=== PATIENT | female | born 1985 | race Caucasian/White ===

== ENCOUNTER 2022-02-07 06:46 | Observation (INO) | payer BC ==
[2022-02-07] MEDS ORDERED: MEFOXIN 2 GM PREMIX** 2 GM/50 ML ML IV ONE (07:14)
[2022-02-07] MEDS ORDERED: Lactated Ringers 1,000 ML IV ONE ×2 (07:15→11:00)
[2022-02-07 07:30] LABS: Hematocrit 40.5 % (35-47); Hemoglobin 13.9 g/dL (12.0-16.0); Mean Cell Volume 86.4 fL (78-100); Mean Corpuscular Hemoglobin 29.6 pg (26-32); Mean Corpuscular Hgb Concent. 34.3 g/dL (32-36); Mean Platelet Volume 10.3 fL (7.5-11.0); Platelet Count 208 x10^3/uL (150-450); Red Blood Count 4.69 x10^6/uL (4.1-5.4); Red Cell Distribution Width 12.3 % (11.5-14.0); White Blood Count 9.6 x10^3/uL (4.0-10.5)
[2022-02-07] MEDS ORDERED: Lactated Ringers 1,000 ML IV SCH (07:30)
[2022-02-07 07:56] LABS: RH TYPING NEGATIVE
[2022-02-07 07:59] LABS: ALBUMIN 4.3 g/dL (3.5-5.0); ALKALINE PHOSPHATASE 84 U/L (38-126); ANION GAP 10.7 MEQ/L (5-15); BLOOD UREA NITROGEN 7 mg/dL (7-17); CHLORIDE 104 mmol/L (98-107); Calcium 9.2 mg/dL (8.4-10.2); Carbon Dioxide 27 mmol/L (22-30); Creatinine 1 0.61 mg/dL (0.52-1.04); EST GLOMERULAR FILTRATION RATE > 60.0 ML/MIN; Glucose 97 mg/dL (74-106); Potassium 4.2 mmol/L (3.5-5.1); SGOT/AST 71 U/L (14-36); SGPT/ALT 46 U/L (0-35); SODIUM 137 mmol/L (137-145); Total Protein 7.6 g/dL (6.3-8.2)
[2022-02-07] MEDS ORDERED: MEFOXIN 2 GM PREMIX** 2 GM/50 ML ML IV SCH (08:00)
[2022-02-07 08:07] LABS: INFLUENZA A NEGATIVE (NEGATIVE); INFLUENZA B NEGATIVE (NEGATIVE); RESPIRATORY SYNCTIAL VIRUS NEGATIVE (Negative); SARS-CoV-2 Xpert Express NEGATIVE (NEGATIVE)
[2022-02-07 09:22] LABS: ABO TYPING A; Antibody Screen NEGATIVE (NEGATIVE)
[2022-02-07] MEDS ORDERED: Decadron 4 MG INJ ONE ×2 (10:54→12:07)
[2022-02-07] MEDS ORDERED: DIPRIVAN 200 MG/20 ML IV ONE (10:54)
[2022-02-07] MEDS ORDERED: Zofran 4 MG/2 ML VIAL ONE (10:54)
[2022-02-07] MEDS ORDERED: BRIDION 200MG/2ML IV ONE (10:54)
[2022-02-07] MEDS ORDERED: SUBLIMAZE 100 MCG/2 ML ONE (10:55)
[2022-02-07] MEDS ORDERED: Zemuron 100 MG/10 ML ONE (10:58)
[2022-02-07] MEDS ORDERED: Sensorcaine 0.25% 10 ML ONE (11:00)
[2022-02-07] MEDS ORDERED: Xylocaine-Mpf 2% 5 Ml Vial ONE (11:00)
[2022-02-07] MEDS ORDERED: Astramorph-Pf 5 MG/10 ML ONE (11:01)
[2022-02-07] MEDS ORDERED: Versed 2 MG/2 ML Injection ONE (11:03)
[2022-02-07] MEDS ORDERED: TORAdol 30 mg Injection ONE (12:03)
[2022-02-07] MEDS ORDERED: Marcaine 0.5%/Epinephrine 10 ML ONE (12:07)
[2022-02-07] MEDS ORDERED: DEXMEDETOMIDINE 80 MCG/20ML-NS IV ONE (12:08)
[2022-02-07] MEDS ORDERED: BENADRYL 50 MG/ML IJ ONE (14:16)
[2022-02-07] MEDS ORDERED: Zofran 4 MG/2 ML VIAL IV PRN ×2 (15:14→15:30)
[2022-02-07] MEDS ORDERED: TORAdol 30 mg Injection IV PRN (15:15)
[2022-02-07] MEDS ORDERED: Narcan 0.4 MG/ML IV PRN (15:30)
[2022-02-07] MEDS ORDERED: Sodium Chloride 0.9% 10 ML FLUSH Syringe IJ PRN (15:30)
[2022-02-07] MEDS ORDERED: DEMEROL 50 MG IV PRN (15:30)
[2022-02-07] MEDS ORDERED: MORPHINE SULFATE 2 MG INJ IV PRN (15:30)
[2022-02-07] MEDS ORDERED: Nubain 10 MG/ML IV PRN (15:30)
[2022-02-07] MEDS ORDERED: BENADRYL 50 MG/ML IV PRN (15:30)
[2022-02-07] MEDS ORDERED: PERCOCET TABLET 5/325MG PO PRN (15:30)
[2022-02-07] MEDS ORDERED: CLARITIN 10 MG PO PRN (15:30)
[2022-02-07] MEDS: Reglan 10 MG/2 ML IV SCH ×2 (16:12→21:26)
[2022-02-07] MEDS: Mylicon 80MG PO SCH ×3 (16:13→21:26)
[2022-02-07] MEDS: Lactated Ringers 1,000 ML IV SCH (16:14)
[2022-02-07] MEDS: CEFAZOLIN 2 GM-D5W BAG** 2 GM/50 ML ML IV SCH ×2 (16:14→23:46)
[2022-02-07 18:43] LABS: Hematocrit 43.1 % (35-47); Hemoglobin 14.2 g/dL (12.0-16.0); Mean Cell Volume 88.9 fL (78-100); Mean Corpuscular Hemoglobin 29.3 pg (26-32); Mean Corpuscular Hgb Concent. 32.9 g/dL (32-36); Mean Platelet Volume 10.4 fL (7.5-11.0); Platelet Count 215 x10^3/uL (150-450); Red Blood Count 4.85 x10^6/uL (4.1-5.4); White Blood Count 15.2 x10^3/uL (4.0-10.5)
[2022-02-07] MEDS: Docusate Sodium 100 MG PO SCH (21:26)
[2022-02-07 21:31] LABS: Appearance CLEAR (CLEAR); Bilirubin NEGATIVE (NEGATIVE); Dipstick done @ ? MAIN LAB; Glucose NEGATIVE (NEGATIVE); Ketones NEGATIVE (NEGATIVE); Nitrite NEGATIVE (NEGATIVE); Ph 7.5 (5-6); Protein,Urine Dip NEGATIVE (Negative); RBC NEGATIVE Ery/ul (0-5); Specific Gravity 1.015 (1.005-1.025); Urobilinogen 0.2 mg/dL (0-1)
[2022-02-07 21:43] LABS: Mucus SLIGHT /HPF (NEGATIVE)
[2022-02-08] MEDS: Lactated Ringers 1,000 ML IV SCH (00:44)
[2022-02-08 04:14] VITALS: O2SAT 95
[2022-02-08 04:55] LABS: Absolute Neutrophil Ct (ANC) 12.34 x10^3/uL (1.4-6.9); Basophil (Absolute #) 0.01 x10^3/uL (0-0.4); Eosinophil (Absolute #) 0 x10^3/uL (0-0.5); Hematocrit 39.2 % (35-47); Hemoglobin 13.1 g/dL (12.0-16.0); Lymphocyte (Absolute #) 0.79 x10^3/uL (1.0-4.6); Lymphocytes % 5.8 % (24.0-44.0); Mean Cell Volume 89.1 fL (78-100); Mean Corpuscular Hemoglobin 29.8 pg (26-32); Mean Corpuscular Hgb Concent. 33.4 g/dL (32-36); Mean Platelet Volume 10.4 fL (7.5-11.0); Monocyte (Absolute #) 0.37 x10^3/uL (0.0-1.3); Monocytes % 2.7 % (0.0-12.0); Neutrophil % 90.9 % (36.0-66.0); Platelet Count 220 x10^3/uL (150-450); White Blood Count 13.6 x10^3/uL (4.0-10.5)
[2022-02-08] MEDS: Mylicon 80MG PO SCH (05:20)
[2022-02-08] MEDS: Reglan 10 MG/2 ML IV SCH (05:20)
[2022-02-08 05:22] LABS: ALBUMIN 3.7 g/dL (3.5-5.0); ALKALINE PHOSPHATASE 70 U/L (38-126); ANION GAP 8.6 MEQ/L (5-15); BLOOD UREA NITROGEN 8 mg/dL (7-17); CHLORIDE 103 mmol/L (98-107); Calcium 8.9 mg/dL (8.4-10.2); Carbon Dioxide 27 mmol/L (22-30); EST GLOMERULAR FILTRATION RATE > 60.0 ML/MIN; Glucose 120 mg/dL (74-106); Potassium 4.4 mmol/L (3.5-5.1); SGOT/AST 25 U/L (14-36); SGPT/ALT 35 U/L (0-35); SODIUM 133 mmol/L (137-145); Total Protein 6.7 g/dL (6.3-8.2)
--- NOTE | 2022-02-08 07:40 | PCM.NOTE ---
Date and Time: 02/08/22 0739 Subjective Assessment: pod 1 sp lash pt currently doing well and tolerating diet. has not ambulated today. vss afebrile abd; soft incision c/d/intact ext; no clubbing cyanosis or edema hgb; 13 a/p sp laparoscopic supracervical hysterectomy right ov cystectomy anticipate discharge home today should fu in office in 2 wks OBJECTIVE DATA Vital Signs: Vital Signs - 24 hr Temp Pulse Resp BP Pulse Ox 02/08/22 04:00 97.1 F 65 18 111/59 95 02/07/22 23:36 97.9 F 65 16 108/55 94 L 02/07/22 20:00 98.2 F 75 15 107/59 96 02/07/22 16:17 97.1 F 72 16 118/65 96 02/07/22 16:00 97.1 F 62 16 118/65 96 02/07/22 08:07 97.3 F 66 18 128/88 96 02/07/22 08:05 97.3 F 66 18 128/88 96 02/07/22 07:47 97.3 F 66 18 128/88 96 Intake and Output: Intake & Output 02/05/22 02/06/22 02/07/22 02/08/22 11:59 11:59 11:59 11:59 Intake Total 2396 Output Total 575 Balance 1821 Weight 100.8 kg 100.8 kg Lab Results: Lab Results-Last 24 Hours 02/07/22 02/07/22 02/07/22 Range/Units 07:23 07:23 07:30 WBC (4.0-10.5) x10^3/uL RBC (4.1-5.4) x10^6/uL Hgb (12.0-16.0) g/dL Hct (35-47) % MCV (78-100) fL MCH (26-32) pg MCHC (32-36) g/dL RDW (11.5-14.0) % Plt Count (150-450) x10^3/uL MPV (7.5-11.0) fL Gran % (36.0-66.0) % Immature Gran % (Auto) (0.00-0.4) % Nucleat RBC Rel Count (0.00-0.1) % Eos # (Auto) (0-0.5) x10^3/uL Immature Gran # (Auto) (0.00-0.03) x10^3u/L Absolute Lymphs (auto) (1.0-4.6) x10^3/uL Absolute Monos (auto) (0.0-1.3) x10^3/uL Absolute Nucleated RBC (0.00-0.01) x10^3u/L Lymphocytes % (24.0-44.0) % Monocytes % (0.0-12.0) % Eosinophils % (0.00-5.0) % Basophils % (0.0-0.4) % Absolute Granulocytes (1.4-6.9) x10^3/uL Basophils # (0-0.4) x10^3/uL Sodium 137 (137-145) mmol/L Potassium 4.2 (3.5-5.1) mmol/L Chloride 104 (98-107) mmol/L Carbon Dioxide 27 (22-30) mmol/L Anion Gap 10.7 (5-15) MEQ/L BUN 7 (7-17) mg/dL Creatinine 0.61 (0.52-1.04) mg/dL Estimated GFR > 60.0 ML/MIN Glucose 97 (74-106) mg/dL Calcium 9.2 (8.4-10.2) mg/dL Total Bilirubin 0.70 (0.2-1.3) mg/dL AST 71 H (14-36) U/L ALT 46 H (0-35) U/L Alkaline Phosphatase 84 (38-126) U/L Serum Total Protein 7.6 (6.3-8.2) g/dL Albumin 4.3 (3.5-5.0) g/dL Urinalys Dipstick Clnc Urine Color (YELLOW) Urine Appearance (CLEAR) Urine pH (5-6) Ur Specific [place] (1.005-1.025) POC Urine Protein Conf (Negative) Urine Ketones (NEGATIVE) Urine Nitrite (NEGATIVE) Urine Bilirubin (NEGATIVE) Urine Urobilinogen (0-1) mg/dL Urine Leukocytes (NEGATIVE) Urine WBC (Auto) (0-5) /HPF Urine RBC (Auto) (0-2) /HPF U Epithel Cells (Auto) (FEW) /HPF Urine Bacteria (Auto) (NEGATIVE) /HPF Urine RBC (0-5) Kamari/ul Urine Mucus (Auto) (NEGATIVE) /HPF Urine Glucose (NEGATIVE) mg/dL Influenza Type A Ag NEGATIVE (NEGATIVE) Influenza Type B Ag NEGATIVE (NEGATIVE) RSV (PCR) NEGATIVE (Negative) SARS-CoV-2 (PCR) NEGATIVE (NEGATIVE) ABO Group A Rh Factor NEGATIVE Antibody Screen NEGATIVE (NEGATIVE) 02/07/22 02/07/22 02/08/22 Range/Units 12:15 18:00 04:30 WBC 15.2 H 13.6 H (4.0-10.5) x10^3/uL RBC 4.85 4.40 (4.1-5.4) x10^6/uL Hgb 14.2 13.1 (12.0-16.0) g/dL Hct 43.1 39.2 (35-47) % MCV 88.9 89.1 (78-100) fL MCH 29.3 29.8 (26-32) pg MCHC 32.9 33.4 (32-36) g/dL RDW 12.0 12.0 (11.5-14.0) % Plt Count 215 220 (150-450) x10^3/uL MPV 10.4 10.4 (7.5-11.0) fL Gran % 90.9 H (36.0-66.0) % Immature Gran % (Auto) 0.5 H (0.00-0.4) % Nucleat RBC Rel Count 0.0 (0.00-0.1) % Eos # (Auto) 0 (0-0.5) x10^3/uL Immature Gran # (Auto) 0.07 H (0.00-0.03) x10^3u/L Absolute Lymphs (auto) 0.79 L (1.0-4.6) x10^3/uL Absolute Monos (auto) 0.37 (0.0-1.3) x10^3/uL Absolute Nucleated RBC 0.00 (0.00-0.01) x10^3u/L Lymphocytes % 5.8 L (24.0-44.0) % Monocytes % 2.7 (0.0-12.0) % Eosinophils % 0.0 (0.00-5.0) % Basophils % 0.1 (0.0-0.4) % Absolute Granulocytes 12.34 H (1.4-6.9) x10^3/uL Basophils # 0.01 (0-0.4) x10^3/uL Sodium (137-145) mmol/L Potassium (3.5-5.1) mmol/L Chloride (98-107) mmol/L Carbon Dioxide (22-30) mmol/L Anion Gap (5-15) MEQ/L BUN (7-17) mg/dL Creatinine (0.52-1.04) mg/dL Estimated GFR ML/MIN Glucose (74-106) mg/dL Calcium (8.4-10.2) mg/dL Total Bilirubin (0.2-1.3) mg/dL AST (14-36) U/L ALT (0-35) U/L Alkaline Phosphatase (38-126) U/L Serum Total Protein (6.3-8.2) g/dL Albumin (3.5-5.0) g/dL Urinalys Dipstick Clnc MAIN LAB Urine Color YELLOW (YELLOW) Urine Appearance CLEAR (CLEAR) Urine pH 7.5 (5-6) Ur Specific [place] 1.015 (1.005-1.025) POC Urine Protein Conf NEGATIVE (Negative) Urine Ketones NEGATIVE (NEGATIVE) Urine Nitrite NEGATIVE (NEGATIVE) Urine Bilirubin NEGATIVE (NEGATIVE) Urine Urobilinogen 0.2 (0-1) mg/dL Urine Leukocytes NEGATIVE (NEGATIVE) Urine WBC (Auto) NONE (0-5) /HPF Urine RBC (Auto) NONE (0-2) /HPF U Epithel Cells (Auto) NONE (FEW) /HPF Urine Bacteria (Auto) NONE (NEGATIVE) /HPF Urine RBC NEGATIVE (0-5) Kamari/ul Urine Mucus (Auto) SLIGHT A (NEGATIVE) /HPF Urine Glucose NEGATIVE (NEGATIVE) mg/dL Influenza Type A Ag (NEGATIVE) Influenza Type B Ag (NEGATIVE) RSV (PCR) (Negative) SARS-CoV-2 (PCR) (NEGATIVE) ABO Group Rh Factor Antibody Screen (NEGATIVE) 02/08/22 Range/Units 04:30 WBC (4.0-10.5) x10^3/uL RBC (4.1-5.4) x10^6/uL Hgb (12.0-16.0) g/dL Hct (35-47) % MCV (78-100) fL MCH (26-32) pg MCHC (32-36) g/dL RDW (11.5-14.0) % Plt Count (150-450) x10^3/uL MPV (7.5-11.0) fL Gran % (36.0-66.0) % Immature Gran % (Auto) (0.00-0.4) % Nucleat RBC Rel Count (0.00-0.1) % Eos # (Auto) (0-0.5) x10^3/uL Immature Gran # (Auto) (0.00-0.03) x10^3u/L Absolute Lymphs (auto) (1.0-4.6) x10^3/uL Absolute Monos (auto) (0.0-1.3) x10^3/uL Absolute Nucleated RBC (0.00-0.01) x10^3u/L Lymphocytes % (24.0-44.0) % Monocytes % (0.0-12.0) % Eosinophils % (0.00-5.0) % Basophils % (0.0-0.4) % Absolute Granulocytes (1.4-6.9) x10^3/uL Basophils # (0-0.4) x10^3/uL Sodium 133 L (137-145) mmol/L Potassium 4.4 (3.5-5.1) mmol/L Chloride 103 (98-107) mmol/L Carbon Dioxide 27 (22-30) mmol/L Anion Gap 8.6 (5-15) MEQ/L BUN 8 (7-17) mg/dL Creatinine 0.60 (0.52-1.04) mg/dL Estimated GFR > 60.0 ML/MIN Glucose 120 H (74-106) mg/dL Calcium 8.9 (8.4-10.2) mg/dL Total Bilirubin 0.60 (0.2-1.3) mg/dL AST 25 (14-36) U/L ALT 35 (0-35) U/L Alkaline Phosphatase 70 (38-126) U/L Serum Total Protein 6.7 (6.3-8.2) g/dL Albumin 3.7 (3.5-5.0) g/dL Urinalys Dipstick Clnc Urine Color (YELLOW) Urine Appearance (CLEAR) Urine pH (5-6) Ur Specific [place] (1.005-1.025) POC Urine Protein Conf (Negative) Urine Ketones (NEGATIVE) Urine Nitrite (NEGATIVE) Urine Bilirubin (NEGATIVE) Urine Urobilinogen (0-1) mg/dL Urine Leukocytes (NEGATIVE) Urine WBC (Auto) (0-5) /HPF Urine RBC (Auto) (0-2) /HPF U Epithel Cells (Auto) (FEW) /HPF Urine Bacteria (Auto) (NEGATIVE) /HPF Urine RBC (0-5) Kamari/ul Urine Mucus (Auto) (NEGATIVE) /HPF Urine Glucose (NEGATIVE) mg/dL Influenza Type A Ag (NEGATIVE) Influenza Type B Ag (NEGATIVE) RSV (PCR) (Negative) SARS-CoV-2 (PCR) (NEGATIVE) ABO Group Rh Factor Antibody Screen (NEGATIVE) Assessment/Plan (1) S/P laparoscopic supracervical hysterectomy Current Visit: Yes Status: Acute Code(s): Z90.711 - ACQUIRED ABSENCE OF UTERUS WITH REMAINING CERVICAL STUMP
--- NOTE | 2022-02-08 07:45 | PCM.DS ---
Discharge Summary Date of Admission: 02/07/22 06:46 Admitting Physician: STEPHANIE ZAPATA DO Primary Care Provider: KAVITHA GARCIA Allergies Allergies bee venom protein (honey bee) Allergy (Verified 02/07/22 07:29) Hospital Summary - Hospital Course Hospital Course: pt admitted on feb 07 for undergoing laparoscopic supracervical hysterectomy right ovarian cystectomy and was done so without complication. during postop period did well with normal labs with hgb at 13. pt advised to fu in office in 2 wks for postop check and denies complaints at this time. all questions answered to her satisfaction and was advised to fu in office in 2 wks. pt given norco for pain management and clindamycin for 3 days for prophylaxis. - Vitals & Intake/Output Vital Signs: Vital Signs Temperature 97.1 F 02/08/22 04:00 Pulse Rate 65 02/08/22 04:00 Respiratory Rate 18 02/08/22 04:00 Blood Pressure 111/59 02/08/22 04:00 O2 Sat by Pulse Oximetry 95 02/08/22 04:00 Intake & Output: Intake & Output 02/05/22 02/06/22 02/07/22 02/08/22 11:59 11:59 11:59 11:59 Intake Total 2396 Output Total 575 Balance 1821 Weight 100.8 kg 100.8 kg - Lab Result Diagrams: 02/08/22 04:30 02/08/22 04:30 Lab Results-Last 24 Hrs: Lab Results-Last 24 Hours 02/07/22 02/07/22 02/07/22 Range/Units 07:23 07:23 07:30 WBC (4.0-10.5) x10^3/uL RBC (4.1-5.4) x10^6/uL Hgb (12.0-16.0) g/dL Hct (35-47) % MCV (78-100) fL MCH (26-32) pg MCHC (32-36) g/dL RDW (11.5-14.0) % Plt Count (150-450) x10^3/uL MPV (7.5-11.0) fL Gran % (36.0-66.0) % Immature Gran % (Auto) (0.00-0.4) % Nucleat RBC Rel Count (0.00-0.1) % Eos # (Auto) (0-0.5) x10^3/uL Immature Gran # (Auto) (0.00-0.03) x10^3u/L Absolute Lymphs (auto) (1.0-4.6) x10^3/uL Absolute Monos (auto) (0.0-1.3) x10^3/uL Absolute Nucleated RBC (0.00-0.01) x10^3u/L Lymphocytes % (24.0-44.0) % Monocytes % (0.0-12.0) % Eosinophils % (0.00-5.0) % Basophils % (0.0-0.4) % Absolute Granulocytes (1.4-6.9) x10^3/uL Basophils # (0-0.4) x10^3/uL Sodium 137 (137-145) mmol/L Potassium 4.2 (3.5-5.1) mmol/L Chloride 104 (98-107) mmol/L Carbon Dioxide 27 (22-30) mmol/L Anion Gap 10.7 (5-15) MEQ/L BUN 7 (7-17) mg/dL Creatinine 0.61 (0.52-1.04) mg/dL Estimated GFR > 60.0 ML/MIN Glucose 97 (74-106) mg/dL Calcium 9.2 (8.4-10.2) mg/dL Total Bilirubin 0.70 (0.2-1.3) mg/dL AST 71 H (14-36) U/L ALT 46 H (0-35) U/L Alkaline Phosphatase 84 (38-126) U/L Serum Total Protein 7.6 (6.3-8.2) g/dL Albumin 4.3 (3.5-5.0) g/dL Urinalys Dipstick Clnc Urine Color (YELLOW) Urine Appearance (CLEAR) Urine pH (5-6) Ur Specific [place] (1.005-1.025) POC Urine Protein Conf (Negative) Urine Ketones (NEGATIVE) Urine Nitrite (NEGATIVE) Urine Bilirubin (NEGATIVE) Urine Urobilinogen (0-1) mg/dL Urine Leukocytes (NEGATIVE) Urine WBC (Auto) (0-5) /HPF Urine RBC (Auto) (0-2) /HPF U Epithel Cells (Auto) (FEW) /HPF Urine Bacteria (Auto) (NEGATIVE) /HPF Urine RBC (0-5) Kamari/ul Urine Mucus (Auto) (NEGATIVE) /HPF Urine Glucose (NEGATIVE) mg/dL Influenza Type A Ag NEGATIVE (NEGATIVE) Influenza Type B Ag NEGATIVE (NEGATIVE) RSV (PCR) NEGATIVE (Negative) SARS-CoV-2 (PCR) NEGATIVE (NEGATIVE) ABO Group A Rh Factor NEGATIVE Antibody Screen NEGATIVE (NEGATIVE) 02/07/22 02/07/22 02/08/22 Range/Units 12:15 18:00 04:30 WBC 15.2 H 13.6 H (4.0-10.5) x10^3/uL RBC 4.85 4.40 (4.1-5.4) x10^6/uL Hgb 14.2 13.1 (12.0-16.0) g/dL Hct 43.1 39.2 (35-47) % MCV 88.9 89.1 (78-100) fL MCH 29.3 29.8 (26-32) pg MCHC 32.9 33.4 (32-36) g/dL RDW 12.0 12.0 (11.5-14.0) % Plt Count 215 220 (150-450) x10^3/uL MPV 10.4 10.4 (7.5-11.0) fL Gran % 90.9 H (36.0-66.0) % Immature Gran % (Auto) 0.5 H (0.00-0.4) % Nucleat RBC Rel Count 0.0 (0.00-0.1) % Eos # (Auto) 0 (0-0.5) x10^3/uL Immature Gran # (Auto) 0.07 H (0.00-0.03) x10^3u/L Absolute Lymphs (auto) 0.79 L (1.0-4.6) x10^3/uL Absolute Monos (auto) 0.37 (0.0-1.3) x10^3/uL Absolute Nucleated RBC 0.00 (0.00-0.01) x10^3u/L Lymphocytes % 5.8 L (24.0-44.0) % Monocytes % 2.7 (0.0-12.0) % Eosinophils % 0.0 (0.00-5.0) % Basophils % 0.1 (0.0-0.4) % Absolute Granulocytes 12.34 H (1.4-6.9) x10^3/uL Basophils # 0.01 (0-0.4) x10^3/uL Sodium (137-145) mmol/L Potassium (3.5-5.1) mmol/L Chloride (98-107) mmol/L Carbon Dioxide (22-30) mmol/L Anion Gap (5-15) MEQ/L BUN (7-17) mg/dL Creatinine (0.52-1.04) mg/dL Estimated GFR ML/MIN Glucose (74-106) mg/dL Calcium (8.4-10.2) mg/dL Total Bilirubin (0.2-1.3) mg/dL AST (14-36) U/L ALT (0-35) U/L Alkaline Phosphatase (38-126) U/L Serum Total Protein (6.3-8.2) g/dL Albumin (3.5-5.0) g/dL Urinalys Dipstick Clnc MAIN LAB Urine Color YELLOW (YELLOW) Urine Appearance CLEAR (CLEAR) Urine pH 7.5 (5-6) Ur Specific [place] 1.015 (1.005-1.025) POC Urine Protein Conf NEGATIVE (Negative) Urine Ketones NEGATIVE (NEGATIVE) Urine Nitrite NEGATIVE (NEGATIVE) Urine Bilirubin NEGATIVE (NEGATIVE) Urine Urobilinogen 0.2 (0-1) mg/dL Urine Leukocytes NEGATIVE (NEGATIVE) Urine WBC (Auto) NONE (0-5) /HPF Urine RBC (Auto) NONE (0-2) /HPF U Epithel Cells (Auto) NONE (FEW) /HPF Urine Bacteria (Auto) NONE (NEGATIVE) /HPF Urine RBC NEGATIVE (0-5) Kamari/ul Urine Mucus (Auto) SLIGHT A (NEGATIVE) /HPF Urine Glucose NEGATIVE (NEGATIVE) mg/dL Influenza Type A Ag (NEGATIVE) Influenza Type B Ag (NEGATIVE) RSV (PCR) (Negative) SARS-CoV-2 (PCR) (NEGATIVE) ABO Group Rh Factor Antibody Screen (NEGATIVE) 02/08/22 Range/Units 04:30 WBC (4.0-10.5) x10^3/uL RBC (4.1-5.4) x10^6/uL Hgb (12.0-16.0) g/dL Hct (35-47) % MCV (78-100) fL MCH (26-32) pg MCHC (32-36) g/dL RDW (11.5-14.0) % Plt Count (150-450) x10^3/uL MPV (7.5-11.0) fL Gran % (36.0-66.0) % Immature Gran % (Auto) (0.00-0.4) % Nucleat RBC Rel Count (0.00-0.1) % Eos # (Auto) (0-0.5) x10^3/uL Immature Gran # (Auto) (0.00-0.03) x10^3u/L Absolute Lymphs (auto) (1.0-4.6) x10^3/uL Absolute Monos (auto) (0.0-1.3) x10^3/uL Absolute Nucleated RBC (0.00-0.01) x10^3u/L Lymphocytes % (24.0-44.0) % Monocytes % (0.0-12.0) % Eosinophils % (0.00-5.0) % Basophils % (0.0-0.4) % Absolute Granulocytes (1.4-6.9) x10^3/uL Basophils # (0-0.4) x10^3/uL Sodium 133 L (137-145) mmol/L Potassium 4.4 (3.5-5.1) mmol/L Chloride 103 (98-107) mmol/L Carbon Dioxide 27 (22-30) mmol/L Anion Gap 8.6 (5-15) MEQ/L BUN 8 (7-17) mg/dL Creatinine 0.60 (0.52-1.04) mg/dL Estimated GFR > 60.0 ML/MIN Glucose 120 H (74-106) mg/dL Calcium 8.9 (8.4-10.2) mg/dL Total Bilirubin 0.60 (0.2-1.3) mg/dL AST 25 (14-36) U/L ALT 35 (0-35) U/L Alkaline Phosphatase 70 (38-126) U/L Serum Total Protein 6.7 (6.3-8.2) g/dL Albumin 3.7 (3.5-5.0) g/dL Urinalys Dipstick Clnc Urine Color (YELLOW) Urine Appearance (CLEAR) Urine pH (5-6) Ur Specific [place] (1.005-1.025) POC Urine Protein Conf (Negative) Urine Ketones (NEGATIVE) Urine Nitrite (NEGATIVE) Urine Bilirubin (NEGATIVE) Urine Urobilinogen (0-1) mg/dL Urine Leukocytes (NEGATIVE) Urine WBC (Auto) (0-5) /HPF Urine RBC (Auto) (0-2) /HPF U Epithel Cells (Auto) (FEW) /HPF Urine Bacteria (Auto) (NEGATIVE) /HPF Urine RBC (0-5) Kamari/ul Urine Mucus (Auto) (NEGATIVE) /HPF Urine Glucose (NEGATIVE) mg/dL Influenza Type A Ag (NEGATIVE) Influenza Type B Ag (NEGATIVE) RSV (PCR) (Negative) SARS-CoV-2 (PCR) (NEGATIVE) ABO Group Rh Factor Antibody Screen (NEGATIVE) Final Diagnosis/Problem List - Final Discharge Diagnosis/Problem (1) S/P laparoscopic supracervical hysterectomy Current Visit: Yes Status: Acute Code(s): Z90.711 - ACQUIRED ABSENCE OF UTERUS WITH REMAINING CERVICAL STUMP - Discharge Disposition: Home, Self-Care Condition: Stable Prescriptions: New clindamycin HCL [Clindamycin HCl] 300 mg PO BID #6 cap Hydrocodone/Acetaminophen [Hydrocodone-Acetamin 5-325 mg] 1 tab PO Q6HPRN PRN #20 tablet MDD 4 PRN Reason: Pain Instructions: Hysterectomy, Abdominal or Laparoscopic Surgery Follow up with: KAVITHA GARCIA NP [Primary Care Provider] -
[2022-02-08] MEDS ORDERED: ENOXAPARIN SODIUM SQ SCH (08:00)
[2022-02-08 08:08] VITALS: BP 111/66; PULSE 67
[2022-02-08] MEDS: Docusate Sodium 100 MG PO SCH (08:37)
[2022-02-08] MEDS ORDERED: HOLD NARCOTIC ANALGESICS AND SEDATIVES X24 HR MC SCH (10:00)
--- NOTE | 2022-02-08 13:00 | OP ---
SURGERY DATE/TIME: 02/07/2022 1139 PREOPERATIVE DIAGNOSES: 1) Menorrhagia with failed ablation. 2) Dysmenorrhea with failed medical management. POSTOPERATIVE DIAGNOSES: 1) Menorrhagia with failed ablation. 2) Dysmenorrhea with failed medical management. 3) Right ovarian cyst. PROCEDURES: 1) Laparoscopic-assisted supracervical hysterectomy. 2) Right ovarian cystectomy. SURGEON: Eliel Torres D.O. VOIP NETWORK ENGINEER: Jovita Villalta dental equipment technician. ANESTHESIA: General. ESTIMATED BLOOD LOSS: 400 cc. COMPLICATIONS: None. INDICATIONS: The risks, benefits, indications and alternatives of the procedure were reviewed with the patient prior to procedure. The patient understood the risk of infection, bleeding, bowel injury, bladder injury, ureteral injury, incisional hernia, pelvic infection, thromboembolic disorder associated with the surgery and desires to have this procedure as a possible means to alleviate her current medical condition. DESCRIPTION OF PROCEDURE AND FINDINGS: At this point the patient is taken to the operating room, given general sedation, placed in the dorsal lithotomy position, prepped and draped in the usual sterile fashion. A weighted speculum is then placed in the patient's vagina and the anterior lip of the cervix grasped with a single toothed tenaculum. Uterine manipulator inserted through the endocervical canal as a means to manipulate the uterus. Attention was then turned to the patient's abdomen where a 5 mm skin incision was made in the umbilical fold where a 5 mm trocar and sleeve were advanced under direct visualization where pneumoperitoneum was obtained with 4 liters of CO2 gas. An additional incision was made left middle quadrant region where a 5 mm incision is made and 5 mm trocar and sleeve were advanced under direct visualization. A right lower quadrant 5 mm incision was made where a 5 mm trocar and sleeve were advanced under direct visualization. A survey of the patient's pelvis revealed her to have a uterus approximately nine weeks size and a right ovarian cyst approximately 3 x 3 cm dimension which appeared to be questionable endometrioma after incision was made into it. From this point a LigaSure was used and was placed on the right ovary excising the cystic portion and was done so without complication. Hemostasis was obtained extruding old blood content within the cystic region. Again, hemostasis was noted and the cyst was removed through the trocar site. From this point the uterus was then elevated with uterine manipulator, turned to its side and the LigaSure was used and it was placed on the left utero-ovarian ligament where it was clamped, coagulated and cut towards the round ligament towards the left side where the left uterine vessels were identified clamped, coagulated and cut and a bladder flap developed on its side. The same procedure was performed on the right side. The right utero-ovarian ligament was clamped, coagulated and cut taken down to the round ligament towards the uterine vasculature where it to was clamped, coagulated and cut on three contiguous regions and a bladder flap developed on its side. From this point the SupraLoop was then introduced through the trocar site and the SupraLoop was ten lassoed over the uterus towards the junction of the uterus and the cervix and the machine was turned on for cutting and the SupraLoop was used to amputate the uterus from the cervical junction and was done so without complication and hemostasis was obtained. From this point approximately 2 cm above the symphysis pubis a 3 cm incision was made at the symphysis pubic region where an incision made taken down to the fascia and the fascia was opened. The Raffi retractor was placed in through the incisional site. The uterus was elevated towards the incisional site and the uterus was removed manually by making incisions along the uterus and removing the uterine content in its entirety without spillage. The Raffi retractor was then removed and the fascia was closed with 0 Vicryl suture and the subcutaneous layer was closed with 3-0 and the skin was closed with absorbable sujatha called INSORB. A survey of the patient's abdomen and pelvis after removal of the uterus appeared to be within normal limits. Irrigation was made. There was no bleeding that was noted in the pelvic region. From this point all instruments were removed from the patient's abdominal region and the incisions were closed with 4-0 Monocryl suture. The patient tolerated the procedure well. The patient was then taken out of dorsal lithotomy position, was taken out of anesthesia and was then taken to the recovery room in stable condition. All instruments and laps were accounted for x2.
== END 2022-02-08 10:45 | disposition home or self-care (01) ==
LOC: MED SURG 06:46 → EDSTATUS 09:29
PROVIDERS: ADMIT Obstetrics & Gynecology; ATTEND Obstetrics & Gynecology
DX: N92.0 Excessive and frequent menstruation with regular cycle (principal); N94.6 Dysmenorrhea, unspecified; N83.201 Unspecified ovarian cyst, right side; Z20.828 Contact with and (suspected) exposure to other viral communicable diseases
CPT/HCPCS: 0241U; 36415; 58541; 58662; 64488; 76937; 80053; 81001; 81025; 85025; 85027; 86850; 86900; 86901; 87086; G0378; 62322; 76942; J0690; J0694; J1100; J1200; J1650; J1885; J2250; J2274; J2405; J2704; J3010; A9270-GY